=== PATIENT | male | born 1940 | race Caucasian/White ===

== ENCOUNTER 2016-10-16 13:03 | Emergency (ER) | payer MEDICARE, OTHER ==
--- NOTE | 2016-10-16 16:20 | RAD ---
ADDENDUM #1 Bones: After discussion with Dr. Small, there is a nondisplaced intra-articular fracture at the base of the second toe middle phalanx, visible on the oblique view. ORIGINAL REPORT FOOT LEFT 3 VIEWS COMPARISON: Left foot 3 views, 05/27/2014 HISTORY: Second toe pain with radiation of pain into the dorsum of the foot. FINDINGS: Views: Left foot dorsoplantar, medial oblique, lateral. Bones: Since the comparison study, there is been an amputation of the distal phalanx of the great toe. No acute finding. No bone destruction or fracture. Joints: Normal. Soft tissues: Normal. IMPRESSION: 1. 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 No other abnormality is identified.
== END 2016-10-16 17:24 | disposition home or self-care (01) ==
LOC: ED 13:03
DX: S92.515A Nondisplaced fracture of proximal phalanx of left lesser toe(s), initial encounter for closed fracture (principal); X58.XXXA Exposure to other specified factors, initial encounter; Y92.9 Unspecified place or not applicable